=== PATIENT | female | born 1955 | race Caucasian/White ===

== ENCOUNTER 2024-12-07 07:16 | Inpatient (IN) | payer MEDICARE, OTHER ==
[~2024-12-07] VITALS: Ht 157.5 cm; Wt 77.1 kg
[2024-12-07] MEDS ORDERED: MIDAZOLAM HCL 2 MG/2ML VIAL ONE (08:24)
[2024-12-07] MEDS ORDERED: FENTANYL PF 100MCG/2ML AMPUL ONE (08:24)
[2024-12-07] MEDS ORDERED: VANCOMYCIN 1 GM VIAL ONE (08:38)
[2024-12-07] MEDS ORDERED: LIDOCAINE 2%-EPI 1:100,000 30 ML VIAL ONE (08:38)
[2024-12-07] MEDS ORDERED: dexaMETHasone SOD PHOSPHATE 2 ML ONE (08:38)
[2024-12-07] MEDS: IV NS 0.9% 1,000 ML IV PRN (12:48)
[2024-12-07 13:00] VITALS: BP 104/70; TEMP 97.9; O2SAT 95
[2024-12-07] MEDS ORDERED: ONDANSETRON HCL/PF 4 MG/2 ML VIAL IV PRN (13:00)
[2024-12-07] MEDS ORDERED: ACETAMINOPHEN 325 MG TABLET PO PRN ×2 (13:00→16:30)
[2024-12-07] MEDS: HYDROMORPHONE 1 MG/1 ML DISP.SYRIN IV PRN (15:20)
[2024-12-07 15:44] VITALS: BP 124/70; TEMP 98.3; O2SAT 95
[2024-12-07 16:00] VITALS: BP 107/66; TEMP 98.1; O2SAT 96
[2024-12-07] MEDS ORDERED: ONDANSETRON HCL/PF 4 MG/2 ML VIAL IVP PRN (16:30)
[2024-12-07] MEDS ORDERED: Z GUARD REMEDY 4 OZ OINT TP PRN (16:30)
[2024-12-07] MEDS ORDERED: MAG HYDROX/AL HYDROX/SIMETH 30 ML UDC PO PRN (16:30)
[2024-12-07] MEDS ORDERED: MAGNESIUM HYDROXIDE 30 ML UDC PO PRN (16:30)
[2024-12-07 20:00] VITALS: BP 109/71; TEMP 97.7; O2SAT 96
[2024-12-07] MEDS: VANCOMYCIN 1 GM in IV D5W 250ml IV SCH (20:47)
[2024-12-07] MEDS: TRAZODONE 50 MG TABLET PO PRN (23:48)
[2024-12-08 06:40] LABS: BASOPHILS % (AUTO) 0.3 % (0.0-2.0); HEMATOCRIT 32 % (33-45); HEMOGLOBIN 10.7 g/dL (11.5-14.8); LYMPHOCYTES # (AUTO) 1.7 K/uL (0.8-4.8); LYMPHOCYTES % (AUTO) 23.1 % (20.0-44.0); MEAN CORPUSCULAR HEMOGLOBIN 28 PG (26.0-33.0); MEAN CORPUSCULAR HGB CONC 34 g/dl (31.0-36.0); MEAN CORPUSCULAR VOLUME 83 fL (82-100); MONOCYTES # (AUTO) 0.6 K/uL (0.1-1.30); MONOCYTES % (AUTO) 7.6 % (2.0-12.0); NEUTROPHILS # (AUTO) 5.2 K/uL (1.8-8.9); PLATELET COUNT (AUTO) 253 K/uL (150-450); RED BLOOD CELL COUNT(AUTO) 3.84 MIL/uL (4.0-5.2); RED CELL DISTRIBUTION WIDTH 14.5 % (11.5-15.0); WHITE BLOOD COUNT (AUTO) 7.5 K/uL (4.3-11.0)
[2024-12-08 07:10] LABS: CALCIUM, SERUM 8.4 mg/dL (8.5-10.1); CREATININE 0.5 mg/dL (0.6-1.3); MAGNESIUM 2.1 mg/dL (1.8-2.4); PHOSPHORUS 3.3 mg/dL (2.5-4.9); POTASSIUM 3.6 mmol/L (3.5-5.1)
[2024-12-08 08:00] VITALS: BP 100/60; TEMP 98.6; O2SAT 96
== END 2024-12-08 12:23 | disposition home or self-care (01) | DRG 141 ==
LOC: EDSEX 07:16 → DS 07:16 → MED 12:05
PROVIDERS: ADMIT Internal Medicine; ATTEND Internal Medicine
PROC: 0NUR07Z Supplement Maxilla with Autologous Tissue Substitute, Open Approach (ICD-10-PCS; 2024-12-07)
PROC: 0N5R0ZZ Destruction of Maxilla, Open Approach (ICD-10-PCS; 2024-12-07)
PROC: 0NSR04Z Reposition Maxilla with Internal Fixation Device, Open Approach (ICD-10-PCS; principal; 2024-12-07 08:30)
DX: S02.40DA Maxillary fracture, left side, initial encounter for closed fracture (principal); M87.9 Osteonecrosis, unspecified; X58.XXXA Exposure to other specified factors, initial encounter; Y92.9 Unspecified place or not applicable; M27.2 Inflammatory conditions of jaws; M85.68 Other cyst of bone, other site; E78.5 Hyperlipidemia, unspecified; D16.5 Benign neoplasm of lower jaw bone; J32.0 Chronic maxillary sinusitis; S02.411A LeFort I fracture, initial encounter for closed fracture
CPT/HCPCS: 36415; 80048-TC; 83735-TC; 84100-TC; 85025-TC; A4223; G0378; J0330; J1100; J1171; J1885; J2250; J2405; J2704; J3010; J3370; J3490; J7030; J7060

== ENCOUNTER 2025-04-16 07:26 | Inpatient (IN) | payer MEDICARE, OTHER ==
[~2025-04-16] VITALS: Ht 157.5 cm; Wt 66.2 kg
[~2025-04-16 07:26] MED LIST: ANESTHESIA TRAY IN PYXIS 1 EA TRAY MC ONE; LIDOCAINE 2%-EPI 1:100,000 30 ML VIAL ONE; OXYMETAZOLINE HCL NASAL SPRAY 30 ML BOTTLE NS ONE; VANCOMYCIN 1 GM VIAL ONE; dexaMETHasone SOD PHOSPHATE 2 ML ONE
[2025-04-16] MEDS ORDERED: FENTANYL PF 100MCG/2ML AMPUL ONE (08:14)
[2025-04-16 12:00] VITALS: BP 99/55; TEMP 98; O2SAT 94
[2025-04-16] MEDS ORDERED: ONDANSETRON HCL/PF 4 MG/2 ML VIAL IV PRN (12:30)
[2025-04-16] MEDS ORDERED: ACETAMINOPHEN 325 MG TABLET PO PRN (12:30)
[2025-04-16] MEDS ORDERED: HYDROMORPHONE 1 MG/1 ML DISP.SYRIN IV PRN (12:30)
[2025-04-16] MEDS: IV NS 0.9% 1,000 ML IV PRN (12:32)
[2025-04-16 16:00] VITALS: BP 109/66; TEMP 97.6; O2SAT 96
[2025-04-16] MEDS: VANCOMYCIN 1 GM in IV D5W 250ml IV SCH (21:24)
[2025-04-16] MEDS: TEMAZEPAM 7.5 MG CAPSULE PO PRN (21:49)
[2025-04-16 23:14] VITALS: BP 104/67; TEMP 97.3; O2SAT 96
[2025-04-17 08:00] VITALS: BP 111/61; TEMP 97.5; O2SAT 99
== END 2025-04-17 14:15 | disposition home or self-care (01) | DRG 908 ==
LOC: DS 07:26 → TELE 11:39 → MED 11:44
PROC: 0N5R0ZZ Destruction of Maxilla, Open Approach (ICD-10-PCS; 2025-04-16)
PROC: 0WB30ZZ Excision of Oral Cavity and Throat, Open Approach (ICD-10-PCS; 2025-04-16)
PROC: 0NPW04Z Removal of Internal Fixation Device from Facial Bone, Open Approach (ICD-10-PCS; principal; 2025-04-16 10:05)
DX: T86.831 Bone graft failure (principal); M87.9 Osteonecrosis, unspecified; S02.40CK Maxillary fracture, right side, subsequent encounter for fracture with nonunion; T84.69XA Infection and inflammatory reaction due to internal fixation device of other site, initial encounter; S02.40DK Maxillary fracture, left side, subsequent encounter for fracture with nonunion; Y92.009 Unspecified place in unspecified non-institutional (private) residence as the place of occurrence of the external cause; Y83.2 Surgical operation with anastomosis, bypass or graft as the cause of abnormal reaction of the patient, or of later complication, without mention of misadventure at the time of the procedure; F03.90 Unspecified dementia, unspecified severity, without behavioral disturbance, psychotic disturbance, mood disturbance, and anxiety; X58.XXXD Exposure to other specified factors, subsequent encounter; D16.4 Benign neoplasm of bones of skull and face; L13.9 Bullous disorder, unspecified; R23.8 Other skin changes
CPT/HCPCS: A4223; G0378; J0330; J1100; J1885; J2405; J2704; J2765; J3010; J3373; J3490; J7030; J7060